=== PATIENT | male | born 1955 | race Caucasian/White ===

== ENCOUNTER → 2018-05-07 | Outpatient (CLI) | payer BC ==
[~2018-05-07] MED LIST: ALEVE 220MG220 MG PO; ASPIR-LOW81 MG PO; VYTORIN PO
== END ==
LOC: COL.RAD 10:23
DX: M25.551 Pain in right hip (principal)
CPT/HCPCS: J3301; Q9967

== ENCOUNTER → 2018-07-24 | Outpatient (CLI) | payer BC | LOC: COL.LAB 15:38 | DX: Z96.641 Presence of right artificial hip joint (principal) ==

== ENCOUNTER → 2019-08-09 | Outpatient (CLI) | payer BC | LOC: COL.RAD 13:00 | DX: M79.89 Other specified soft tissue disorders (principal) | CPT/HCPCS: Q9967 ==